=== PATIENT | female | born 1990 | race Caucasian/White ===

== ENCOUNTER 2019-06-09 20:50 | Emergency (ER) | payer MEDICAID ==
[~2019-06-09] VITALS: Ht 157.5 cm; Wt 73.5 kg
[2019-06-09 20:54] VITALS: BP 115/57
--- NOTE | 2019-06-09 21:00 | NUR ---
PT AMBULATED TO BED 3 WITH STEADY GAIT.
--- NOTE | 2019-06-09 21:00 | NUR ---
29 Y/O FEMALE PT C/O COUGH, FEVER, AND GENERALIZED BODY ACHES X2 DAYS. 8/10 ACHING. PT STATES 6 MO . MUCOUS MEMBRANES PINK AND MOIST. PATIENT STATES SHE HAS A PRODUCTIVE COUGH WITH YELLOW SPUTUM. BREATH SOUNDS CLEAR/DIMINISHED. DENIES N/V/D. DENIES DYSURIA. ERMD MADE AWARE OF STATUS. SIDE RAILSX1. AT BEDSIDE. WILL CONTINUE TO MONITOR. MEDHX: DENIES RX:DENIES NKDA
[2019-06-09] MEDS ORDERED: NACL 0.9% 1,000 ML IV ONE (21:10)
[2019-06-09] MEDS ORDERED: ACETAMINOPHEN EXTRA STRENGTH 500 MG TAB PO ONE (21:10)
[2019-06-09] MEDS ORDERED: OSELTAMIVIR PHOSPHATE 75 MG CAP PO ONE (21:35)
[2019-06-09 22:27] VITALS: BP 126/63
== END 2019-06-09 22:27 | disposition home or self-care (01) ==
LOC: MED 20:50
DX: O26.92 Pregnancy related conditions, unspecified, second trimester (principal); J10.1 Influenza due to other identified influenza virus with other respiratory manifestations
CPT/HCPCS: 87804; 99283; 99284

== ENCOUNTER 2019-08-20 18:09 | Inpatient (IN) | payer MEDICAID ==
[~2019-08-20] VITALS: Ht 162.6 cm; Wt 65.8 kg
[2019-08-20] MEDS ORDERED: LACTATED RINGERS 1,000 ML IV SCH (18:42)
[2019-08-20] MEDS ORDERED: CARBOPROST 250 MCG/ML AMP IM PRN (18:45)
[2019-08-20] MEDS ORDERED: OXYTOCIN 20 UNITS in LACTATED RINGERS 1,000 ML IV SCH (18:45)
[2019-08-20] MEDS ORDERED: METHYLERGONOVINE 0.2 MG/ML AMP IM PRN ×2 (18:45→19:25)
[2019-08-20] MEDS ORDERED: OXYTOCIN 20 UNITS/LR PREMIX 1,000 ML IV ONE (19:07)
[2019-08-20] MEDS ORDERED: MEASLES, MUMPS, AND RUBELLA 1 VIAL SQVAC PRN (19:25)
[2019-08-20] MEDS ORDERED: BENZOCAINE/MENTHOL 20%-0.5% 60 GM CAN TP PRN (19:25)
[2019-08-20] MEDS ORDERED: METHYLERGONOVINE 0.2 MG TAB PO PRN (19:25)
[2019-08-20] MEDS ORDERED: OXYTOCIN 10 UNITS/ML VIAL IM PRN (19:25)
[2019-08-20] MEDS ORDERED: IBUPROFEN 600 MG TAB PO PRN (19:25)
[2019-08-20] MEDS ORDERED: BISACODYL 5 MG TABEC PO PRN (19:25)
[2019-08-20] MEDS ORDERED: IBUPROFEN 800 MG TAB PO PRN (19:25)
[2019-08-20 19:49] LABS: BASOPHILS % (AUTO) 0.2 % (0.0-2.0); EOSINOPHILS % (AUTO) 0.4 % (0.0-4.0); HEMATOCRIT 36.1 % (36-48); HEMOGLOBIN 11.7 g/dL (12.0-16.0); LYMPHOCYTES # (AUTO) 2.6 K/uL (2.5-16.5); MEAN CORPUSCULAR HEMOGLOBIN 30 pg (27-31); MEAN CORPUSCULAR HGB CONC 33 g/dL (33-37); MEAN CORPUSCULAR VOLUME 91.7 fL (80-94); MONOCYTES # (AUTO) 0.6 K/uL (0.8-1.0); MONOCYTES % (AUTO) 4.5 % (1.7-9.3); NEUTROPHILS # (AUTO) 9.2 K/uL (1.8-7.7); NEUTROPHILS % (AUTO) 73.9 % (42.2-75.2); PLATELET COUNT (AUTO) 204 K/uL (140-450); RED BLOOD CELL COUNT(AUTO) 3.93 MIL/uL (4.20-5.40); WHITE BLOOD COUNT (AUTO) 12.5 K/uL (4.8-10.8)
[2019-08-20 19:50] LABS: APPEARANCE,URINE SL CLOUDY (CLEAR); BILIRUBIN,URINE NEGATIVE (NEGATIVE); BLOOD, URINE 3+ (NEGATIVE); COLOR,URINE YELLOW (YELLOW); LEUKOCYTE ESTERASE ,URINE 1+ (NEGATIVE); NITRITE, URINE NEGATIVE (NEGATIVE); UGLUCOSE NEGATIVE (NEGATIVE)
[2019-08-20 20:14] LABS: RBC,URINE 11-20 (MOD) /HPF (0-5)
--- NOTE | 2019-08-21 08:37 | NUR ---
PATIENT HAS BEEN SCREENED AND CATEGORIZED LOW NUTRITION RISK. PATIENT WILL BE SEEN WITHIN 7 DAYS OF ADMISSION. 08/27/19 GIULIANO MELGAR MBA,RD
[2019-08-21 09:42] LABS: HEMATOCRIT 30.9 % (36-48); HEMOGLOBIN 10.2 g/dL (12.0-16.0)
[2019-08-21] MEDS ORDERED: INFLUENZA VACCINE QUAD 0.5 ML SYR IMVAC PRN (17:30)
[2019-08-21] MEDS ORDERED: OXYTOCIN 20 UNITS in LACTATED RINGERS 1,000 ML IV SCH (18:45)
[2019-08-22] MEDS ORDERED: IBUP-2213 PO (07:19)
[2019-08-22] MEDS ORDERED: DOCU-299 PO (07:20)
== END 2019-08-22 14:03 | disposition home or self-care (01) | DRG 560 ==
LOC: MLD 18:09 → MFCC 21:10
PROVIDERS: ADMIT Obstetrics & Gynecology; ATTEND Obstetrics & Gynecology
PROC: 10E0XZZ Delivery of Products of Conception, External Approach (ICD-10-PCS; 2019-08-20)
PROC: 3E0234Z Introduction of Serum, Toxoid and Vaccine into Muscle, Percutaneous Approach (ICD-10-PCS; principal; 2019-08-22)
DX: O77.0 Labor and delivery complicated by meconium in amniotic fluid (principal); Z23 Encounter for immunization; Z37.0 Single live birth; Z3A.38 38 weeks gestation of pregnancy
CPT/HCPCS: 36415; 59409; 81001; 85018; 85025; 86592; 86886; 86900; 86901; 87086; 90715; J2590; J7120